=== PATIENT | female | born 1965 | race Two or more races ===

== ENCOUNTER → 2020-04-25 | Day surgery (SDC) | payer OTHER ==
--- NOTE | 2020-04-30 15:50 | PATH ---
Surgical Pathology Report Patient Name: JENNA GIL [facility]. Rec. #: [id number] /Age/Gender: 1965 (Age: 54) / F Account: [id number] Location: [facility] Taken: 04/25/2020 Received: 04/25/2020 Reported: 04/30/2020 Physicians: Franky Koch M.D. Specimen(s) Received A: LEFT BREAST WITH CALCIFICATIONS SITE # 1 B: LEFT BREAST WITHOUT CALCIFICATIONS SITE # 1 C: LEFT BREAST WITH CALCIFICATIONS SITE # 2 D: LEFT BREAST WITHOUT CALCIFICATIONS SITE # 2 Clinical History Nonpalpable lesion Mammographic findings: Suspicious, highly suspicious/malignant Final Diagnosis A. BREAST, LEFT, WITH CALCIFICATIONS SITE #1, STEREOTACTIC BIOPSY: BENIGN BREAST TISSUE SHOWING FEW DILATED DUCTS, STROMAL FIBROSIS AND ASSOCIATED CALCIFICATIONS. B. BREAST, LEFT, WITHOUT CALCIFICATIONS SITE #1, STEREOTACTIC BIOPSY: BENIGN BREAST TISSUE. C. BREAST, LEFT, WITH CALCIFICATIONS SITE #2, STEREOTACTIC BIOPSY: BENIGN BREAST TISSUE SHOWING FIBROADENOMATOID CHANGE WITH ASSOCIATED CALCIFICATIONS AND PROLIFERATIVE FIBROCYSTIC CHANGES INCLUDING USUAL DUCTAL HYPERPLASIA (UDH) AND CYSTIC APOCRINE METAPLASIA. D. BREAST, LEFT, WITHOUT CALCIFICATIONS SITE #2, STEREOTACTIC BIOPSY: BENIGN BREAST TISSUE. Electronically Signed Francesca Mcdonald M.D. Gross Description A. Received in formalin labeled "1. Left breast with calcifications site #1," is a 3.0 x 2.3 x 0.3 cm aggregate of multiple trammell-yellow, irregular to cylindrical portions of fibroadipose tissue. The formalin is filtered and the specimen is entirely submitted in 2 cassettes. B. Received in formalin labeled "2. Left breast without calcifications, site #1," is a 2.0 x 1.4 x 0.3 cm aggregate of multiple trammell-yellow, irregular to cylindrical portions of fibroadipose tissue. The formalin is filtered and the specimen is entirely submitted in one cassette. C. Received in formalin labeled "3. Left breast with calcifications, site #2," is a 3.0 x 2.3 x 0.3 cm aggregate of multiple trammell-yellow, irregular to cylindrical portions of fibroadipose tissue. The formalin is filtered and the specimen is entirely submitted in 2 cassettes. D. Received in formalin labeled "4. left breast without calcifications, site #2," is a 2.0 x 1.7 x 0.3 cm aggregate of multiple trammell-yellow, irregular to cylindrical portions of fibroadipose tissue. The formalin is filtered and the specimen is entirely submitted in one cassette. Time to formalin fixation: 10 minutes Total formalin fixation time: Approximately 8 hours. 04/25/2020 [facility]04/25/2020
== END | disposition home or self-care (01) ==
LOC: FMAMMOTONE 07:26
PROVIDERS: ATTEND Family Medicine
PROC: 0HBU3ZX Excision of Left Breast, Percutaneous Approach, Diagnostic (ICD-10-PCS; principal; 2020-04-25)
DX: N60.12 Diffuse cystic mastopathy of left breast (principal); N60.32 Fibrosclerosis of left breast; N60.82 Other benign mammary dysplasias of left breast; N64.89 Other specified disorders of breast; R92.1 Mammographic calcification found on diagnostic imaging of breast
CPT/HCPCS: 19081; 19082; 76098-TC-FY; 87899; 88305-TC; A4648

== ENCOUNTER 2022-11-29 12:23 | Emergency (ER) | payer OTHER ==
[2022-11-29 12:47] VITALS: BMI 27.7
[2022-11-29 13:50] LABS: BASO % 0.6 % (0-2.0); EOS % 1.5 % (0-4.5); HEMATOCRIT 45.6 % (32.4-45.2); HEMOGLOBIN 15.4 GM/dL (10.7-15.3); LYMPH % 26.8 % (8-40); MCH 29.7 pg (25.7-33.7); MCHC 33.7 g/dl (32.0-36.0); MEAN CELL VOLUME 88.3 fl (80-96); MEAN PLT VOLUME 9.1 fl (7.5-11.1); MONO % 7.3 % (3.8-10.2); NEUT % 63.8 % (42.8-82.8); PLATELET COUNT 363 10^3/uL (134-434); RBC 5.17 M/mm3 (3.60-5.2); RDW 13.1 % (11.6-15.6); WHITE BLOOD COUNT 14.2 K/mm3 (4.0-10.0)
[2022-11-29 13:52] LABS: PH,URINE 6.5 (5.0-8.0); URINE APPEARANCE CLEAR; URINE BILIRUBIN NEGATIVE (NEGATIVE); URINE COLOR YELLOW; URINE GLUCOSE (UA) 3+ (NEGATIVE); URINE KETONE NEGATIVE (NEGATIVE); URINE LEUK ESTERASE NEGATIVE (NEGATIVE); URINE NITRITE NEGATIVE (NEGATIVE); URINE PROTEIN NEGATIVE (NEGATIVE); URINE UROBILINOGEN 0.2 mg/dL (0.2-1.0)
[2022-11-29] MEDS ORDERED: METOCLOPRAMIDE HCL INJECTION 10 MG/2 ML VIAL IVPB ONE (14:00)
[2022-11-29] MEDS ORDERED: METOCLOPRAMIDE HCL INJECTION 10 MG/2 ML VIAL ONE (14:05)
[2022-11-29 14:15] LABS: ALBUMIN 3.9 g/dl (3.4-5.0); CALCIUM 9.7 mg/dL (8.5-10.1)
[2022-11-29 14:16] LABS: BLOOD UREA NITROGEN 14.3 mg/dL (7-18)
[2022-11-29 14:19] LABS: CREATININE 0.9 mg/dL (0.55-1.3); PHOSPHOROUS 3.3 mg/dL (2.5-4.9)
[2022-11-29 14:20] LABS: BILIRUBIN,TOTAL 0.9 mg/dL (0.2-1); TOT PROT 7.9 g/dl (6.4-8.2)
[2022-11-29 16:10] VITALS: BP 124/77; PULSE 72; RESP 16; TEMP 98.6
== END 2022-11-29 16:10 | disposition home or self-care (01) ==
LOC: JER 12:23
PROC: 3E033GC Introduction of Other Therapeutic Substance into Peripheral Vein, Percutaneous Approach (ICD-10-PCS; principal; 2022-11-29)
DX: R73.9 Hyperglycemia, unspecified (principal); R42 Dizziness and giddiness
CPT/HCPCS: 36415; 70450-TC; 71045-TC-FY; 80053; 81003; 82962; 83735; 84100; 84484; 85025; 87086; 93005; 93010; 99285-25